=== PATIENT | male | born 1950 ===

== ENCOUNTER 2017-06-06 09:53 | Emergency (ER) | payer MEDICARE, BC, OTHER ==
[2017-06-06 10:13] VITALS: TEMP 97.4
[2017-06-06] MEDS ORDERED: MECLIZINE HYDROCHLORIDE 12.5 MG TAB PO ONE (10:22)
[2017-06-06] MEDS ORDERED: MECLIZINE HYDROCHLORIDE 12.5 MG TAB ONE (10:23)
[2017-06-06 10:33] LABS: BASOPHILS % (AUTO) 1 % (0-3); EOSINOPHILS % (AUTO) 4 % (0-9); HEMATOCRIT 40 % (39-53); MEAN CORPUSCULAR HGB CONC 35.9 gm/dl (32.0-36.0); MEAN CORPUSCULAR VOLUME 85 fL (80-100); MONOCYTES % (AUTO) 5.3 % (0-12); NEUTROPHILS % (AUTO) 65.7 % (37-80)
[2017-06-06 10:50] LABS: CALCIUM 9.3 mg/dl (8.5-10.1); GLOM FILT RATE 69 mL/min (>60); POTASSIUM 4.1 mMol/L (3.5-5.1); SODIUM 140 mMol/L (136-145)
[2017-06-06 11:04] VITALS: BP 129/65; PULSE 56; RESP 17; O2SAT 94
== END 2017-06-06 11:07 | disposition home or self-care (01) | DRG 149 ==
LOC: ED 09:53
DX: H81.10 Benign paroxysmal vertigo, unspecified ear (principal)
CPT/HCPCS: 36415; 80048; 84484; 85025; 93005; 99284

== ENCOUNTER 2018-04-01 11:30 | Emergency (ER) | payer MEDICARE, BC, OTHER ==
[2018-04-01] MEDS ORDERED: NITROGLYCERIN 0.4 MG TAB SL PRN (11:40)
[2018-04-01] MEDS ORDERED: ASPIRIN 81 MG CHEWABLE CTB PO STA (11:40)
[2018-04-01] MEDS ORDERED: SODIUM CHLORIDE 0.9% FLUSH 10 ML SOL IV PRN (11:40)
[2018-04-01 11:49] VITALS: TEMP 97.2
[2018-04-01 11:49] LABS: BASOPHILS % (AUTO) 1 % (0-3); EOSINOPHILS % (AUTO) 5 % (0-9); HEMATOCRIT 45 % (39-53); HEMOGLOBIN 14.6 gm/dl (13.5-17.7); LYMPHOCYTES % (AUTO) 28.7 % (10-50); MEAN CORPUSCULAR HEMOGLOBIN 28.3 pg (27.0-32.0); MEAN CORPUSCULAR HGB CONC 32.5 gm/dl (32.0-36.0); MEAN CORPUSCULAR VOLUME 87 fL (80-100); MONOCYTES % (AUTO) 9.2 % (0-12); NEUTROPHILS % (AUTO) 56.1 % (37-80)
[2018-04-01 12:02] LABS: CARBON DIOXIDE 30.7 mEq/L (21-32); CREATININE 0.99 mg/dl (0.80-1.30); POTASSIUM 4.3 mMol/L (3.5-5.1)
[2018-04-01] MEDS ORDERED: ASPIRIN 81 MG CHEWABLE CTB ONE (12:11)
[2018-04-01 12:17] LABS: TROP I 0.031 ng/ml (0.000-0.056)
[2018-04-01 16:39] VITALS: BP 148/82; PULSE 52; RESP 18; O2SAT 97
== END 2018-04-01 14:46 | disposition home or self-care (01) | DRG 313 ==
LOC: ED 11:30
DX: R07.9 Chest pain, unspecified (principal)
CPT/HCPCS: 36415; 71045; 80048; 82550; 84484; 85025; 93005; 99284; 99285